=== PATIENT | female | born 1955 | race Caucasian/White ===

== ENCOUNTER 2017-01-02 07:19 | Emergency (ER) | payer MEDICAID ==
[~2017-01-02] VITALS: Ht 162.6 cm; Wt 60.0 kg
[~2017-01-02 07:19] MED LIST: ACET-2178 PO; Folic Acid PO; LEVO750T21 PO; METR250T PO; Multivitamins,Ther W-Minerals PO; ONDA4TAB5 PO; PANT40TA4 PO; Thiamine Hcl PO
[2017-01-02 08:08] LABS: BASOPHILS % 0.9 % (0.0-2.0); DIFFERENTIAL COMMENT 0; EOSINOPHILS % 3.3 % (0.0-5.0); HEMATOCRIT. 28.1 % (36.0-48.0); LYMPHOCYTES % 19.6 % (20.0-50.0); MEAN CORPUSCULAR HEMOGLOBIN 24.7 pg (28.0-32.0); MEAN CORPUSCULAR HGB CONC 32.2 g/dL (31.0-37.0); MEAN CORPUSCULAR VOLUME 76.7 fL (81.0-99.0); MEAN PLATELET VOLUME 7.6 fl (7.4-10.4); MONOCYTES % 13.4 % (2.0-8.0); NEUTROPHILS % 62.8 % (40.0-76.0); PLATELET 104 x1000/uL (130-400); RED BLOOD CELL COUNT 3.66 mill/uL (4.2-5.4); RED CELL DISTRIBUTION WIDTH 18.4 % (11.6-14.6); WHITE BLOOD COUNT 2.9 x1000/uL (4.5-11.0)
[2017-01-02 08:12] LABS: CHLORIDE 103 mEq/L (98-107); INDEX HEMOLYSI 1 (1-3); INDEX ICTERIC 1 (1-4); INDEX LIPEMIC 1 (1-3)
[2017-01-02 08:17] LABS: ACETAMINOPHEN < 2 ug/mL (10-30); ANION GAP 14; CARBON DIOXIDE 28 mEq/L (21-32); ETHANOL BLOOD 231 mg/dL; UREA NITROGEN BLOOD 11 mg/dL (7-21); eGFR > 60 mL/min (>60)
[2017-01-02 09:21] LABS: ALANINE AMINOTRANSFERASE 28 IU/L (13-61); ALBUMIN 3.6 g/dL (3.4-5.0)
[2017-01-02 09:22] LABS: CLARITY URINE CLEAR (CLEAR); COLOR URINE YELLOW (YELLOW); GLUCOSE URINE NEGATIVE (NEGATIVE); KETONES URINE NEGATIVE (NEGATIVE); LEUKOCYTE ESTERASE URINE 2+ (NEGATIVE); NITRITE URINE NEGATIVE (NEGATIVE); OCCULT BLOOD URINE NEGATIVE (NEGATIVE); PH URINE 5.5 (4.5-8.0); PROTEIN URINE NEGATIVE (NEGATIVE); SPECIFIC GRAVITY URINE 1.008 (1.005-1.030); UROBILINOGEN URINE 0.2 E.U./dL (0.2-1.0)
[2017-01-02 09:37] LABS: *AMPHETAMINES SCREEN URINE NEGATIVE (NEGATIVE); *BARBITURATES SCREEN URINE NEGATIVE (NEGATIVE); *BENZODIAZEPINES SCREEN URINE NEGATIVE (NEGATIVE); *COCAINE SCREEN URINE NEGATIVE (NEGATIVE); CANNABINOID URINE SCREEN NEGATIVE (NEGATIVE); ECSTASY MDMA SCREEN URINE NEGATIVE (NEGATIVE); METHADONE URINE SCREEN NEGATIVE (NEGATIVE); OPIATES URINE SCREEN NEGATIVE (NEGATIVE); PHENCYCLIDINE URINE SCREEN NEGATIVE (NEGATIVE)
[2017-01-02 09:47] LABS: SQUAMOUS EPITHELIAL CELL URINE FEW /lpf (RARE/1+)
[2017-01-02 09:48] LABS: BACTERIA URINE 3+; WBC URINE 15-25 /hpf (0-2)
[2017-01-02 09:49] LABS: RBC URINE 0-2 /hpf (0-2)
[2017-01-02 10:08] VITALS: BP 126/82
== END 2017-01-02 10:15 | disposition left against medical advice (07) ==
LOC: ER 07:49
DX: K70.30 Alcoholic cirrhosis of liver without ascites (principal); F10.10 Alcohol abuse, uncomplicated; D64.9 Anemia, unspecified; F32.9 Major depressive disorder, single episode, unspecified; F31.9 Bipolar disorder, unspecified; I10 Essential (primary) hypertension; R45.851 Suicidal ideations; Y90.7 Blood alcohol level of 200-239 mg/100 ml
CPT/HCPCS: 36415; 80053; 80305; 80307; 80329; 81001; 85025; 99284; G0482

== ENCOUNTER 2017-01-08 08:34 | Emergency (ER) | payer MEDICAID ==
[~2017-01-08] VITALS: Ht 160 cm; Wt 66.0 kg
[2017-01-08] MEDS ORDERED: KETOROLAC 30MG/ML VIAL IV STA (09:24)
[2017-01-08] MEDS ORDERED: SODIUM CHLORIDE 0.9% 1,000 ML IV ONE (09:24)
[2017-01-08] MEDS ORDERED: ONDANSETRON HCL 4MG/2ML VIAL IV STA (09:24)
[2017-01-08 10:15] LABS: CLARITY URINE CLEAR (CLEAR); COLOR URINE YELLOW (YELLOW); GLUCOSE URINE NEGATIVE (NEGATIVE); KETONES URINE NEGATIVE (NEGATIVE); LEUKOCYTE ESTERASE URINE NEGATIVE (NEGATIVE); NITRITE URINE NEGATIVE (NEGATIVE); OCCULT BLOOD URINE NEGATIVE (NEGATIVE); PH URINE 7.5 (4.5-8.0); PROTEIN URINE NEGATIVE (NEGATIVE); SPECIFIC GRAVITY URINE 1.005 (1.005-1.030); UROBILINOGEN URINE 0.2 E.U./dL (0.2-1.0)
[2017-01-08 10:30] LABS: *AMPHETAMINES SCREEN URINE NEGATIVE (NEGATIVE); *BARBITURATES SCREEN URINE NEGATIVE (NEGATIVE); *BENZODIAZEPINES SCREEN URINE NEGATIVE (NEGATIVE); *COCAINE SCREEN URINE NEGATIVE (NEGATIVE); CANNABINOID URINE SCREEN NEGATIVE (NEGATIVE); ECSTASY MDMA SCREEN URINE NEGATIVE (NEGATIVE); METHADONE URINE SCREEN NEGATIVE (NEGATIVE); OPIATES URINE SCREEN NEGATIVE (NEGATIVE); PHENCYCLIDINE URINE SCREEN NEGATIVE (NEGATIVE)
[2017-01-08 10:35] LABS: HEMATOCRIT. 26.8 % (36.0-48.0); HEMOGLOBIN. 8.6 g/dL (12.0-16.0); MEAN CORPUSCULAR HEMOGLOBIN 25.2 pg (28.0-32.0); MEAN CORPUSCULAR VOLUME 78.7 fL (81.0-99.0); MEAN PLATELET VOLUME 7.8 fl (7.4-10.4); PLATELET 120 x1000/uL (130-400); RED BLOOD CELL COUNT 3.41 mill/uL (4.2-5.4); RED CELL DISTRIBUTION WIDTH 19.6 % (11.6-14.6); WHITE BLOOD COUNT 2.6 x1000/uL (4.5-11.0)
[2017-01-08 10:39] LABS: DIFFERENTIAL COMMENT 1
[2017-01-08 10:41] LABS: INR 1.2; PROTHROMBIN TIME 12.4 sec
[2017-01-08 10:46] LABS: ALANINE AMINOTRANSFERASE 28 IU/L (13-61); ALBUMIN 3.7 g/dL (3.4-5.0); ANION GAP 15; CALCIUM 9.2 mg/dL (8.5-10.1); CARBON DIOXIDE 27 mEq/L (21-32); CHLORIDE 103 mEq/L (98-107); INDEX HEMOLYSI 1 (1-3); INDEX ICTERIC 1 (1-4); INDEX LIPEMIC 1 (1-3); LIPASE 343 IU/L (73-393); UREA NITROGEN BLOOD 12 mg/dL (7-21); eGFR > 60 mL/min (>60)
[2017-01-08 11:17] LABS: ANISOCYTOSIS 1+; PLATELET ESTIMATE DECREASED
[2017-01-08 11:18] LABS: GIANT PLATELETS FEW
[2017-01-08 11:19] VITALS: BP 141/71
== END 2017-01-08 12:42 | disposition home or self-care (01) ==
LOC: ER 08:36
DX: R10.11 Right upper quadrant pain (principal); R11.2 Nausea with vomiting, unspecified; K85.90 Acute pancreatitis without necrosis or infection, unspecified; K70.30 Alcoholic cirrhosis of liver without ascites; I10 Essential (primary) hypertension; K80.20 Calculus of gallbladder without cholecystitis without obstruction; M19.90 Unspecified osteoarthritis, unspecified site; F12.10 Cannabis abuse, uncomplicated; F31.9 Bipolar disorder, unspecified; K76.9 Liver disease, unspecified
CPT/HCPCS: 36415; 76705; 80053; 80305; 81003; 81025; 83690; 85025; 85610; 96361; 96374; 96375; 99285; J1885; J2405; J7030; Z7610

== ENCOUNTER 2017-03-14 14:49 | Emergency (ER) | payer MEDICAID ==
[~2017-03-14] VITALS: Ht 157.5 cm; Wt 70.0 kg
[2017-03-14 16:07] VITALS: BP 127/76
[2017-05-29] MEDS ORDERED: FERR325T23 PO (13:43)
[2017-05-29] MEDS ORDERED: Multivitamins,Ther W-Minerals PO (13:43)
[2017-05-29] MEDS ORDERED: NITR-87 PO (13:43)
[2017-05-29] MEDS ORDERED: FOLI-43 PO (13:43)
[2017-05-29] MEDS ORDERED: THIA100T72 PO (13:43)
== END 2017-03-14 21:30 | disposition home or self-care (01) ==
LOC: ER 14:49
DX: L29.9 Pruritus, unspecified (principal); R21 Rash and other nonspecific skin eruption; I10 Essential (primary) hypertension; F41.9 Anxiety disorder, unspecified; F31.9 Bipolar disorder, unspecified; F12.10 Cannabis abuse, uncomplicated
CPT/HCPCS: 99283

== ENCOUNTER 2017-03-19 18:33 | Emergency (ER) | payer MEDICAID ==
[~2017-03-19] VITALS: Ht 162.6 cm; Wt 77.0 kg
[2017-03-19] MEDS ORDERED: SODIUM CHLORIDE 0.9% 1,000 ML IV ONE (21:00)
[2017-03-19] MEDS ORDERED: ACTIVATED CHARCOAL 50 G/240 ML TUBE PO NR (21:00)
[2017-03-19 21:14] LABS: BASOPHILS % 1.6 % (0.0-2.0); EOSINOPHILS % 1.2 % (0.0-5.0); HEMATOCRIT. 22.9 % (36.0-48.0); HEMOGLOBIN. 7.2 g/dL (12.0-16.0); LYMPHOCYTES % 25.8 % (20.0-50.0); MEAN CORPUSCULAR HEMOGLOBIN 21.9 pg (28.0-32.0); MEAN CORPUSCULAR VOLUME 70.2 fL (81.0-99.0); MEAN PLATELET VOLUME 8.7 fl (7.4-10.4); MONOCYTES % 10.4 % (2.0-8.0); PLATELET 99 x1000/uL (130-400); RED BLOOD CELL COUNT 3.26 mill/uL (4.2-5.4); RED CELL DISTRIBUTION WIDTH 25.8 % (11.6-14.6)
[2017-03-19 21:27] LABS: CARBON DIOXIDE 26 mEq/L (21-32); CHLORIDE 114 mEq/L (98-107)
[2017-03-19 21:29] LABS: ETHANOL BLOOD 294 mg/dL
[2017-03-19 21:42] LABS: *AMPHETAMINES SCREEN URINE NEGATIVE (NEGATIVE); *BARBITURATES SCREEN URINE NEGATIVE (NEGATIVE); *BENZODIAZEPINES SCREEN URINE NEGATIVE (NEGATIVE); CANNABINOID URINE SCREEN NEGATIVE (NEGATIVE); METHADONE URINE SCREEN NEGATIVE (NEGATIVE); OPIATES URINE SCREEN NEGATIVE (NEGATIVE); PHENCYCLIDINE URINE SCREEN NEGATIVE (NEGATIVE)
[2017-03-19 21:44] LABS: PLATELET ESTIMATE DECREASED
[2017-03-19 22:32] LABS: *COCAINE SCREEN URINE NEGATIVE (NEGATIVE)
[2017-03-20 01:23] LABS: TOTAL IRON BINDING CAPACITY 480 ug/dL (250-450)
[2017-03-20 13:07] VITALS: BP 138/72
[2017-05-29] MEDS ORDERED: FERR325T23 PO (13:43)
[2017-05-29] MEDS ORDERED: THIA100T72 PO (13:43)
[2017-05-29] MEDS ORDERED: NITR-87 PO (13:43)
[2017-05-29] MEDS ORDERED: Multivitamins,Ther W-Minerals PO (13:43)
[2017-05-29] MEDS ORDERED: FOLI-43 PO (13:43)
== END 2017-03-20 13:08 | disposition home or self-care (01) ==
LOC: ER 19:18
DX: T43.022A Poisoning by tetracyclic antidepressants, intentional self-harm, initial encounter (principal); F10.129 Alcohol abuse with intoxication, unspecified; Y90.8 Blood alcohol level of 240 mg/100 ml or more; F32.9 Major depressive disorder, single episode, unspecified; I10 Essential (primary) hypertension; F31.9 Bipolar disorder, unspecified; M19.90 Unspecified osteoarthritis, unspecified site; F12.10 Cannabis abuse, uncomplicated; F15.10 Other stimulant abuse, uncomplicated; K76.9 Liver disease, unspecified; R45.851 Suicidal ideations; Y92.59 Other trade areas as the place of occurrence of the external cause
CPT/HCPCS: 36415; 80048; 80305; 80307; 80329; 83540; 83550; 85025; 96360; 99284; G0482; J7030

== ENCOUNTER 2017-05-24 17:29 | Inpatient (IN) | payer MEDICAID ==
[~2017-05-24] VITALS: Ht 167.6 cm; Wt 67.3 kg
[2017-05-24 19:56] LABS: BASOPHILS % 1.3 % (0.0-2.0); EOSINOPHILS % 3.1 % (0.0-5.0); HEMATOCRIT. 30.6 % (36.0-48.0); HEMOGLOBIN. 9.6 g/dL (12.0-16.0); MEAN CORPUSCULAR HEMOGLOBIN 22.6 pg (28.0-32.0); MEAN CORPUSCULAR VOLUME 72.1 fL (81.0-99.0); MEAN PLATELET VOLUME 8.6 fl (7.4-10.4); MONOCYTES % 9.6 % (2.0-8.0); PLATELET 153 x1000/uL (130-400); RED BLOOD CELL COUNT 4.25 mill/uL (4.2-5.4); RED CELL DISTRIBUTION WIDTH 31.8 % (11.6-14.6)
[2017-05-24 19:57] LABS: INR 1.2; PROTHROMBIN TIME 12.8 sec (9.4-11.6)
[2017-05-24 20:00] LABS: AMMONIA 11 uMol/L (<32)
[2017-05-24 20:02] LABS: CARBON DIOXIDE 24 mEq/L (21-32); CHLORIDE 109 mEq/L (98-107); ETHANOL BLOOD 186 mg/dL
[2017-05-24 20:07] LABS: CREATINE KINASE 132 IU/L (26-192)
[2017-05-24 20:11] LABS: PLATELET ESTIMATE NORMAL
[2017-05-24 22:50] LABS: CLARITY URINE CLOUDY (CLEAR); COLOR URINE YELLOW (YELLOW); GLUCOSE URINE NEGATIVE (NEGATIVE); KETONES URINE NEGATIVE (NEGATIVE); LEUKOCYTE ESTERASE URINE 2+ (NEGATIVE); NITRITE URINE POSITIVE (NEGATIVE); OCCULT BLOOD URINE NEGATIVE (NEGATIVE); PH URINE 6.5 (4.5-8.0); PROTEIN URINE NEGATIVE (NEGATIVE); SPECIFIC GRAVITY URINE 1.011 (1.005-1.030); UROBILINOGEN URINE 0.2 E.U./dL (0.2-1.0)
[2017-05-24 22:59] LABS: *AMPHETAMINES SCREEN URINE PRESUMTIVE POSITIVE (NEGATIVE); *BARBITURATES SCREEN URINE NEGATIVE (NEGATIVE); *BENZODIAZEPINES SCREEN URINE NEGATIVE (NEGATIVE); *COCAINE SCREEN URINE PRESUMTIVE POSITIVE (NEGATIVE); CANNABINOID URINE SCREEN NEGATIVE (NEGATIVE); METHADONE URINE SCREEN NEGATIVE (NEGATIVE); OPIATES URINE SCREEN NEGATIVE (NEGATIVE); PHENCYCLIDINE URINE SCREEN NEGATIVE (NEGATIVE)
[2017-05-25] VITALS (7 sets, daily range): BP systolic 130–161; BP diastolic 78–81
[2017-05-25] MEDS ORDERED: SODIUM CHLORIDE 0.9% 1,000 ML IV ONE (00:15)
[2017-05-25] MEDS ORDERED: POTASSIUM CHLORIDE 20MEQ TABLET SR PO NR (06:30)
[2017-05-25] MEDS: MULTIVITAMINS,THER W-MINERALS TABLET PO SCH (08:09)
[2017-05-25] MEDS: CHLORDIAZEPOXIDE 25MG CAPSULE PO SCH ×3 (08:09→21:47)
[2017-05-25] MEDS: FOLIC ACID 1MG TABLET PO SCH (08:09)
[2017-05-25] MEDS: THIAMINE HCL 100MG TABLET PO SCH (08:09)
[2017-05-25] MEDS ORDERED: FOLIC ACID 1 MG, THIAMINE HCL 100 MG, MVI, ADULT NO.1 10 ML in DEXTROSE 5% WATER 1,000 ML IV ONE ×4 (09:00)
[2017-05-25 09:39] LABS: BASOPHILS % 0.9 % (0.0-2.0); EOSINOPHILS % 2.5 % (0.0-5.0); HEMATOCRIT. 30.1 % (36.0-48.0); HEMOGLOBIN. 9.7 g/dL (12.0-16.0); LYMPHOCYTES % 18.5 % (20.0-50.0); MEAN CORPUSCULAR HEMOGLOBIN 23.1 pg (28.0-32.0); MEAN CORPUSCULAR VOLUME 71.7 fL (81.0-99.0); MEAN PLATELET VOLUME 8.6 fl (7.4-10.4); MONOCYTES % 14.1 % (2.0-8.0); PLATELET 119 x1000/uL (130-400); RED CELL DISTRIBUTION WIDTH 31.4 % (11.6-14.6)
[2017-05-25 09:50] LABS: CARBON DIOXIDE 24 mEq/L (21-32); CHLORIDE 104 mEq/L (98-107); HDL CHOLESTEROL 55 mg/dL (40-59); LDL CHOLESTEROL 91 mg/dL (5-100)
[2017-05-25] MEDS ORDERED: LORAZEPAM 2MG/ML CPJ IV PRN (11:15)
[2017-05-25 12:38] LABS: HEPATITIS B SURFACE ANTIGEN NEGATIVE
[2017-05-25] MEDS ORDERED: POTASSIUM CHLORIDE 20MEQ/PACKET PO NR (12:45)
[2017-05-25 13:06] LABS: HEPATITIS B CORE AB IGM NEGATIVE
[2017-05-25 13:08] LABS: HEPATITIS A AB IGM NEGATIVE (NEGATIVE)
[2017-05-25] MEDS: ACETAMINOPHEN 325MG TABLET PO PRN (13:35)
[2017-05-25] MEDS ORDERED: MAGNESIUM 2 G PREMIX 50 ML IV NR (14:00)
[2017-05-25 15:16] LABS: CREATINE KINASE 78 IU/L (26-192); TROPONIN I < 0.02 ng/mL (0.00-0.04)
[2017-05-25] MEDS ORDERED: CEFTRIAXONE 2 G PREMIX 50 ML IV SCH (16:30)
[2017-05-25] MEDS: CEFTRIAXONE 2 G in DEXTROSE 5% WATER 50 ML IV SCH (16:43)
[2017-05-25 23:19] LABS: CREATINE KINASE 73 IU/L (26-192); CREATINE KINASE MB FRACTION 1.3 ng/mL (0.5-3.6); TROPONIN I < 0.02 ng/mL (0.00-0.04)
[2017-05-26] VITALS (8 sets, daily range): BP systolic 118–147; BP diastolic 54–87
[2017-05-26 06:27] LABS: HEMATOCRIT. 28.8 % (36.0-48.0); HEMOGLOBIN. 9.2 g/dL (12.0-16.0); MEAN CORPUSCULAR HEMOGLOBIN 23.3 pg (28.0-32.0); MEAN CORPUSCULAR VOLUME 72.6 fL (81.0-99.0); MEAN PLATELET VOLUME 8.7 fl (7.4-10.4); PLATELET 88 x1000/uL (130-400); RED BLOOD CELL COUNT 3.96 mill/uL (4.2-5.4); RED CELL DISTRIBUTION WIDTH 31.8 % (11.6-14.6)
[2017-05-26] MEDS: CHLORDIAZEPOXIDE 25MG CAPSULE PO SCH ×3 (06:27→21:59)
[2017-05-26 07:50] LABS: CARBON DIOXIDE 27 mEq/L (21-32); CHLORIDE 104 mEq/L (98-107)
[2017-05-26] MEDS: MULTIVITAMINS,THER W-MINERALS TABLET PO SCH (08:20)
[2017-05-26] MEDS: FOLIC ACID 1MG TABLET PO SCH (08:20)
[2017-05-26] MEDS: THIAMINE HCL 100MG TABLET PO SCH (08:20)
[2017-05-26 09:47] LABS: PLATELET ESTIMATE DECREASED
[2017-05-26] MEDS ORDERED: POTASSIUM CHLORIDE 20MEQ TABLET SR PO NR (10:30)
[2017-05-26] MEDS: CEFTRIAXONE 2 G in DEXTROSE 5% WATER 50 ML IV SCH (16:02)
[2017-05-26] MEDS: ACETAMINOPHEN 325MG TABLET PO PRN (21:59)
[2017-05-27] VITALS: BP 123/59
[2017-05-27 04:00] VITALS: BP 127/67
[2017-05-27] MEDS: CHLORDIAZEPOXIDE 25MG CAPSULE PO SCH ×3 (07:29→21:29)
[2017-05-27 08:00] VITALS: BP 141/83
[2017-05-27] MEDS: MULTIVITAMINS,THER W-MINERALS TABLET PO SCH (10:11)
[2017-05-27] MEDS: THIAMINE HCL 100MG TABLET PO SCH (10:11)
[2017-05-27] MEDS: FOLIC ACID 1MG TABLET PO SCH (10:11)
[2017-05-27 11:42] LABS: HEMATOCRIT. 28.4 % (36.0-48.0); MEAN CORPUSCULAR HEMOGLOBIN 22.9 pg (28.0-32.0); MEAN CORPUSCULAR VOLUME 72.7 fL (81.0-99.0); RED BLOOD CELL COUNT 3.91 mill/uL (4.2-5.4); RED CELL DISTRIBUTION WIDTH 31.3 % (11.6-14.6)
[2017-05-27 12:00] VITALS: BP_SYST 119; BP_SYST 127; BP_SYST 139; BP_DIAS 63; BP_DIAS 73; BP_DIAS 82
[2017-05-27 12:08] LABS: ATYPICAL LYMPHOCYTES 1
[2017-05-27 12:12] LABS: PLATELET ESTIMATE DECREASED
[2017-05-27 12:13] LABS: CARBON DIOXIDE 25 mEq/L (21-32); CHLORIDE 107 mEq/L (98-107); PLATELET 93 x1000/uL (130-400)
[2017-05-27] MEDS ORDERED: POTASSIUM CHLORIDE 20MEQ TABLET SR PO NR (15:45)
[2017-05-27 16:00] VITALS: BP 125/68
[2017-05-27] MEDS: CEFTRIAXONE 2 G in DEXTROSE 5% WATER 50 ML IV SCH (16:21)
[2017-05-27 19:47] LABS: TOTAL IRON BINDING CAPACITY 348 ug/dL (250-450)
[2017-05-27 20:00] VITALS: BP_SYST 136; BP_SYST 137; BP_DIAS 77; BP_DIAS 85
[2017-05-27] MEDS ORDERED: FILGRASTIM 300 MCG/ML VIAL SUBCUT NR (21:00)
[2017-05-28] VITALS: BP 137/81
[2017-05-28 04:00] VITALS: BP 129/72
[2017-05-28 06:35] LABS: BASOPHILS % 0.3 % (0.0-2.0); EOSINOPHILS % 1.6 % (0.0-5.0); HEMATOCRIT. 29.6 % (36.0-48.0); HEMOGLOBIN. 9.4 g/dL (12.0-16.0); LYMPHOCYTES % 7.9 % (20.0-50.0); MEAN CORPUSCULAR HEMOGLOBIN 23.2 pg (28.0-32.0); MEAN CORPUSCULAR VOLUME 73.1 fL (81.0-99.0); MEAN PLATELET VOLUME 8.6 fl (7.4-10.4); MONOCYTES % 11.2 % (2.0-8.0); PLATELET 87 x1000/uL (130-400); RED BLOOD CELL COUNT 4.05 mill/uL (4.2-5.4); RED CELL DISTRIBUTION WIDTH 31.4 % (11.6-14.6)
[2017-05-28] MEDS: CHLORDIAZEPOXIDE 25MG CAPSULE PO SCH ×3 (07:03→21:32)
[2017-05-28] MEDS: FERROUS SULFATE 325MG TABLET PO SCH ×3 (07:03→17:17)
[2017-05-28 07:41] LABS: CARBON DIOXIDE 22 mEq/L (21-32); CHLORIDE 106 mEq/L (98-107)
[2017-05-28 08:00] VITALS: BP_SYST 119; BP_SYST 132; BP_SYST 135; BP_DIAS 75; BP_DIAS 78; BP_DIAS 83
[2017-05-28] MEDS: THIAMINE HCL 100MG TABLET PO SCH (08:24)
[2017-05-28] MEDS: MULTIVITAMINS,THER W-MINERALS TABLET PO SCH (08:24)
[2017-05-28] MEDS: FOLIC ACID 1MG TABLET PO SCH (08:24)
[2017-05-28 12:00] VITALS: BP 119/65
[2017-05-28] MEDS ORDERED: ONDANSETRON HCL 4MG/2ML VIAL IV PRN (13:30)
[2017-05-28 16:00] VITALS: BP 122/65
[2017-05-28] MEDS: CEFTRIAXONE 2 G in DEXTROSE 5% WATER 50 ML IV SCH (17:17)
[2017-05-28] MEDS: ACETAMINOPHEN 325MG TABLET PO PRN (21:38)
[2017-05-28 21:42] VITALS: BP 129/65
[2017-05-29] VITALS: BP 118/66
[2017-05-29 04:00] VITALS: BP 123/75
[2017-05-29] MEDS: CHLORDIAZEPOXIDE 25MG CAPSULE PO SCH ×3 (06:44→21:01)
[2017-05-29] MEDS: FERROUS SULFATE 325MG TABLET PO SCH ×3 (06:45→16:44)
[2017-05-29 06:48] LABS: BASOPHILS % 0.7 % (0.0-2.0); EOSINOPHILS % 2.1 % (0.0-5.0); HEMATOCRIT. 31.2 % (36.0-48.0); LYMPHOCYTES % 10.7 % (20.0-50.0); MEAN CORPUSCULAR HEMOGLOBIN 23.6 pg (28.0-32.0); MEAN CORPUSCULAR VOLUME 73.5 fL (81.0-99.0); MEAN PLATELET VOLUME 8.7 fl (7.4-10.4); MONOCYTES % 7.8 % (2.0-8.0); NEUTROPHILS % 78.7 % (40.0-76.0); PLATELET 119 x1000/uL (130-400); RED BLOOD CELL COUNT 4.24 mill/uL (4.2-5.4); RED CELL DISTRIBUTION WIDTH 32.2 % (11.6-14.6)
[2017-05-29 06:53] LABS: CARBON DIOXIDE 25 mEq/L (21-32); CHLORIDE 107 mEq/L (98-107)
[2017-05-29 08:00] VITALS: BP 123/73
[2017-05-29] MEDS: FOLIC ACID 1MG TABLET PO SCH (08:34)
[2017-05-29] MEDS: MULTIVITAMINS,THER W-MINERALS TABLET PO SCH (08:34)
[2017-05-29] MEDS: THIAMINE HCL 100MG TABLET PO SCH (08:34)
[2017-05-29 12:00] VITALS: BP 117/65
[2017-05-29] MEDS ORDERED: THIA100T72 PO (13:43)
[2017-05-29] MEDS ORDERED: NITR-87 PO (13:43)
[2017-05-29] MEDS ORDERED: Multivitamins,Ther W-Minerals PO (13:43)
[2017-05-29] MEDS ORDERED: FOLI-43 PO (13:43)
[2017-05-29] MEDS ORDERED: FERR325T23 PO (13:43)
[2017-05-29 16:14] VITALS: BP 96/55
[2017-05-29] MEDS: CEFTRIAXONE 2 G in DEXTROSE 5% WATER 50 ML IV SCH (16:30)
[2017-05-29 20:00] VITALS: BP 110/58
[2017-05-30 00:09] VITALS: BP 142/77
[2017-05-30 04:00] VITALS: BP 126/77
[2017-05-30] MEDS: CHLORDIAZEPOXIDE 25MG CAPSULE PO SCH (05:22)
[2017-05-30 08:00] VITALS: BP_SYST 126; BP_SYST 134; BP_DIAS 75; BP_DIAS 77
[2017-05-30] MEDS: MULTIVITAMINS,THER W-MINERALS TABLET PO SCH (08:56)
[2017-05-30] MEDS: FERROUS SULFATE 325MG TABLET PO SCH (08:56)
[2017-05-30] MEDS: THIAMINE HCL 100MG TABLET PO SCH (08:56)
[2017-05-30] MEDS: FOLIC ACID 1MG TABLET PO SCH (09:00)
[2017-05-30 12:00] VITALS: BP 131/72
[2017-05-30 12:41] VITALS: BP 131/72
== END 2017-05-30 13:00 | disposition home or self-care (01) | DRG 775 ==
LOC: ER 17:29 → 5WST 23:16 → ENRESERV 05-25 00:02
PROVIDERS: ADMIT Internal Medicine; ATTEND Internal Medicine
DX: F10.229 Alcohol dependence with intoxication, unspecified (principal); D61.818 Other pancytopenia; R65.10 Systemic inflammatory response syndrome (SIRS) of non-infectious origin without acute organ dysfunction; E83.42 Hypomagnesemia; G45.9 Transient cerebral ischemic attack, unspecified; F31.9 Bipolar disorder, unspecified; K70.30 Alcoholic cirrhosis of liver without ascites; I10 Essential (primary) hypertension; D50.9 Iron deficiency anemia, unspecified; F17.210 Nicotine dependence, cigarettes, uncomplicated; N39.0 Urinary tract infection, site not specified; Z59.0 Homelessness; E87.6 Hypokalemia; D63.8 Anemia in other chronic diseases classified elsewhere; F19.10 Other psychoactive substance abuse, uncomplicated; Y90.6 Blood alcohol level of 120-199 mg/100 ml; F41.9 Anxiety disorder, unspecified; Z79.899 Other long term (current) drug therapy
CPT/HCPCS: 36415; 70450; 70551; 71010; 80048; 80053; 80061; 80305; 81001; 82140; 82550; 82553; 82728; 83540; 83550; 83605; 83735; 83880; 84443; 84484; 85025; 85044; 85610; 85730; 86705; 86709; 86803; 86850; 86900; 87077; 87086; 87186; 87340; 93005; 93970; 97162; 99285; C1893; G0482; J0696; J1442; J2405; J3411; J3475; J3490; J7030; J7050; J7060; J7070

== ENCOUNTER 2017-06-23 18:21 | Inpatient (IN) | payer MEDICAID ==
[~2017-06-23] VITALS: Ht 160 cm; Wt 65.8 kg
[~2017-06-23 18:21] MED LIST changes: -ACET-2178 PO; +FERR325T23 PO; +FOLI-43 PO; -Folic Acid PO; -LEVO750T21 PO; -METR250T PO; +NITR-87 PO; -ONDA4TAB5 PO; -PANT40TA4 PO; +THIA100T72 PO; -Thiamine Hcl PO
[2017-06-23] MEDS ORDERED: SODIUM CHLORIDE 0.9% 1,000 ML IV ONE ×2 (18:30→20:00)
[2017-06-23] MEDS ORDERED: ONDANSETRON HCL 4MG/2ML VIAL IV STA (18:30)
[2017-06-23] MEDS ORDERED: PANTOPRAZOLE SODIUM 40 MG/VIAL IV STA (18:30)
[2017-06-23 19:10] LABS: BASOPHILS % 1.7 % (0.0-2.0); EOSINOPHILS % 1.9 % (0.0-5.0); HEMOGLOBIN. 11.4 g/dL (12.0-16.0); LYMPHOCYTES % 20.5 % (20.0-50.0); MEAN CORPUSCULAR HEMOGLOBIN 26.2 pg (28.0-32.0); MEAN CORPUSCULAR VOLUME 80.5 fL (81.0-99.0); MEAN PLATELET VOLUME 8.3 fl (7.4-10.4); MONOCYTES % 13.7 % (2.0-8.0); NEUTROPHILS % 62.2 % (40.0-76.0); PLATELET 176 x1000/uL (130-400); RED BLOOD CELL COUNT 4.35 mill/uL (4.2-5.4); RED CELL DISTRIBUTION WIDTH 29.1 % (11.6-14.6)
[2017-06-23 19:18] LABS: INR 1.2; PROTHROMBIN TIME 12.7 sec (9.4-11.6)
[2017-06-23 19:23] LABS: CARBON DIOXIDE 25 mEq/L (21-32); CHLORIDE 111 mEq/L (98-107); ETHANOL BLOOD 289 mg/dL
[2017-06-23 19:26] LABS: TROPONIN I < 0.02 ng/mL (0.00-0.04)
[2017-06-23] MEDS ORDERED: METOCLOPRAMIDE HCL 10MG/2ML VIAL IV STA (21:20)
[2017-06-23] MEDS ORDERED: FAMOTIDINE 20MG/2ML VIAL IV STA (21:20)
[2017-06-23] MEDS ORDERED: MAGNESIUM/ALUMINUM HYDROXIDE/SIMETHICONE 30ML UDC PO STA (21:20)
[2017-06-23 21:26] LABS: CLARITY URINE CLEAR (CLEAR); COLOR URINE YELLOW (YELLOW); GLUCOSE URINE NEGATIVE (NEGATIVE); KETONES URINE NEGATIVE (NEGATIVE); LEUKOCYTE ESTERASE URINE NEGATIVE (NEGATIVE); NITRITE URINE NEGATIVE (NEGATIVE); OCCULT BLOOD URINE NEGATIVE (NEGATIVE); PROTEIN URINE NEGATIVE (NEGATIVE); SPECIFIC GRAVITY URINE 1.017 (1.005-1.030); UROBILINOGEN URINE 0.2 E.U./dL (0.2-1.0)
[2017-06-23] MEDS ORDERED: DIPHENHYDRAMINE 50MG/ML VIAL IV ONE (21:30)
[2017-06-23 21:37] LABS: *AMPHETAMINES SCREEN URINE NEGATIVE (NEGATIVE); *BARBITURATES SCREEN URINE NEGATIVE (NEGATIVE); *BENZODIAZEPINES SCREEN URINE PRESUMTIVE POSITIVE (NEGATIVE); *COCAINE SCREEN URINE NEGATIVE (NEGATIVE); CANNABINOID URINE SCREEN NEGATIVE (NEGATIVE); METHADONE URINE SCREEN NEGATIVE (NEGATIVE); OPIATES URINE SCREEN NEGATIVE (NEGATIVE); PHENCYCLIDINE URINE SCREEN NEGATIVE (NEGATIVE)
[2017-06-23] MEDS ORDERED: IOHEXOL-300 100 ML BOTTLE ONE (22:39)
[2017-06-24] MEDS ORDERED: SODIUM CHLORIDE 0.9% 1,000 ML IV ONE (00:45)
[2017-06-24] MEDS ORDERED: SODIUM CHLORIDE 0.9% 1,000 ML IV SCH (02:26)
[2017-06-24 08:40] VITALS: BP 142/72
[2017-06-24] MEDS ORDERED: DIPHENHYDRAMINE 50MG/ML VIAL IV PRN (09:45)
[2017-06-24] MEDS ORDERED: CLONIDINE 0.1MG TABLET PO PRN (09:45)
[2017-06-24] MEDS ORDERED: MAGNESIUM/ALUMINUM HYDROXIDE/SIMETHICONE 30ML UDC PO PRN (09:45)
[2017-06-24] MEDS ORDERED: ONDANSETRON HCL 4MG/2ML VIAL IV PRN (10:00)
[2017-06-24] MEDS: DEXT 5%/0.45% NACL 1000ML 1,000 ML IV SCH ×2 (11:23→19:53)
[2017-06-24 12:00] VITALS: BP 144/67
[2017-06-24 16:00] VITALS: BP 138/68
[2017-06-24] MEDS: HYDROCORTISONE ACETATE 25MG SUPP PR SCH ×2 (16:45→20:51)
[2017-06-24 20:00] VITALS: BP 131/63
[2017-06-24] MEDS: ACETAMINOPHEN 325MG TABLET PO PRN (20:51)
[2017-06-25] VITALS (7 sets, daily range): BP systolic 123–149; BP diastolic 60–78
[2017-06-25] MEDS: DEXT 5%/0.45% NACL 1000ML 1,000 ML IV SCH ×2 (05:42→16:09)
[2017-06-25 07:56] LABS: CARBON DIOXIDE 24 mEq/L (21-32); CHLORIDE 107 mEq/L (98-107)
[2017-06-25] MEDS: ACETAMINOPHEN 325MG TABLET PO PRN ×2 (08:59→23:42)
[2017-06-25] MEDS: HYDROCORTISONE ACETATE 25MG SUPP PR SCH ×2 (08:59→20:50)
[2017-06-25] MEDS: PANTOPRAZOLE SODIUM 40 MG/VIAL IV SCH (09:00)
[2017-06-25 09:48] LABS: HEMATOCRIT. 31.9 % (36.0-48.0); HEMOGLOBIN. 10.6 g/dL (12.0-16.0); MEAN CORPUSCULAR HEMOGLOBIN 27.3 pg (28.0-32.0); MEAN CORPUSCULAR VOLUME 82.2 fL (81.0-99.0); MEAN PLATELET VOLUME 8.5 fl (7.4-10.4); PLATELET 85 x1000/uL (130-400); RED BLOOD CELL COUNT 3.88 mill/uL (4.2-5.4); RED CELL DISTRIBUTION WIDTH 26.1 % (11.6-14.6)
[2017-06-25] MEDS ORDERED: POTASSIUM CHLORIDE 20MEQ TABLET SR PO NR ×2 (15:15→18:00)
[2017-06-25 16:58] LABS: PLATELET ESTIMATE DECREASED
[2017-06-25] MEDS ORDERED: MAGNESIUM 1 G PREMIX 100 ML IV NR (17:00)
[2017-06-25] MEDS ORDERED: POTASSIUM CHLORIDE 20MEQ TABLET SR PO ONE (17:45)
[2017-06-26] MEDS: DEXT 5%/0.45% NACL 1000ML 1,000 ML IV SCH ×2 (00:47→12:53)
[2017-06-26 04:00] VITALS: BP 128/63
[2017-06-26 06:14] LABS: HEMATOCRIT. 30.7 % (36.0-48.0); MEAN CORPUSCULAR VOLUME 82.7 fL (81.0-99.0); MEAN PLATELET VOLUME 8.9 fl (7.4-10.4); PLATELET 84 x1000/uL (130-400); RED BLOOD CELL COUNT 3.71 mill/uL (4.2-5.4); RED CELL DISTRIBUTION WIDTH 25.3 % (11.6-14.6)
[2017-06-26 07:04] LABS: CARBON DIOXIDE 24 mEq/L (21-32); CHLORIDE 110 mEq/L (98-107)
[2017-06-26 08:00] VITALS: BP 129/82
[2017-06-26] MEDS: PANTOPRAZOLE SODIUM 40 MG/VIAL IV SCH (09:04)
[2017-06-26] MEDS: HYDROCORTISONE ACETATE 25MG SUPP PR SCH (09:04)
[2017-06-26 12:00] VITALS: BP 109/68
[2017-06-26 16:00] VITALS: BP 150/75
[2017-06-26 16:51] VITALS: BP 147/71
[2017-06-26 18:15] LABS: PLATELET ESTIMATE DECREASED
== END 2017-06-26 17:15 | disposition home or self-care (01) ==
LOC: ER 18:46 → 7WST 06-24 02:28 → CANRESERV 06-24 04:35 → ENRESERV 06-24 04:35 → CANBEDREQ 06-24 08:39
PROVIDERS: ADMIT Internal Medicine; ATTEND Internal Medicine
DX: K74.60 Unspecified cirrhosis of liver (principal); G92 Toxic encephalopathy; D69.6 Thrombocytopenia, unspecified; K80.20 Calculus of gallbladder without cholecystitis without obstruction; F31.9 Bipolar disorder, unspecified; G40.909 Epilepsy, unspecified, not intractable, without status epilepticus; E87.6 Hypokalemia; F10.20 Alcohol dependence, uncomplicated; F17.210 Nicotine dependence, cigarettes, uncomplicated; F41.1 Generalized anxiety disorder; I10 Essential (primary) hypertension; Z79.899 Other long term (current) drug therapy
CPT/HCPCS: 36415; 71010; 74177; 80048; 80053; 80305; 81003; 83605; 83690; 83735; 84484; 85025; 85610; 86850; 86900; 93005; 99285; C9113; G0482; J1200; J2405; J2765; J3475; J3490; J7030; Q9967

== ENCOUNTER 2017-08-30 19:54 | Emergency (ER) | payer MEDICAID ==
[~2017-08-30] VITALS: Ht 157.5 cm; Wt 64.0 kg
[2017-08-30] MEDS ORDERED: ONDANSETRON HCL 4MG/2ML VIAL IV STA (20:24)
[2017-08-30] MEDS ORDERED: SODIUM CHLORIDE 0.9% 1,000 ML IV ONE (20:24)
[2017-08-30 22:01] LABS: BASOPHILS % 0.4 % (0.0-2.0); EOSINOPHILS % 1.2 % (0.0-5.0); HEMATOCRIT. 34.5 % (36.0-48.0); HEMOGLOBIN. 11.7 g/dL (12.0-16.0); MEAN CORPUSCULAR HEMOGLOBIN 29.2 pg (28.0-32.0); MEAN CORPUSCULAR VOLUME 86.6 fL (81.0-99.0); MEAN PLATELET VOLUME 8.5 fl (7.4-10.4); MONOCYTES % 9.2 % (2.0-8.0); NEUTROPHILS % 62.2 % (40.0-76.0); PLATELET 90 x1000/uL (130-400); RED BLOOD CELL COUNT 3.99 mill/uL (4.2-5.4); RED CELL DISTRIBUTION WIDTH 18.9 % (11.6-14.6)
[2017-08-30 22:04] LABS: CHLORIDE 108 mEq/L (98-107)
[2017-08-30 22:06] LABS: INR 1.3; PARTIAL THROMBOPLASTIN TIME 30.1 sec (23.4-31.0); PROTHROMBIN TIME 13.2 sec (9.4-11.6)
[2017-08-30 22:07] LABS: CARBON DIOXIDE 27 mEq/L (21-32)
[2017-08-30 22:15] LABS: TROPONIN I < 0.02 ng/mL (0.00-0.04)
[2017-08-30 22:17] LABS: ETHANOL BLOOD 388 mg/dL
[2017-08-30] MEDS ORDERED: ONDANSETRON HCL 4MG/2ML VIAL IV ONE (22:45)
[2017-08-31 01:11] VITALS: BP 124/80
== END 2017-08-31 01:14 | disposition home or self-care (01) ==
LOC: ER 20:25 → CANBEDREQ 08-31 01:36
DX: S09.8XXA Other specified injuries of head, initial encounter (principal); M54.5 Low back pain; F10.229 Alcohol dependence with intoxication, unspecified; R79.1 Abnormal coagulation profile; W19.XXXA Unspecified fall, initial encounter; Y93.89 Activity, other specified; Y92.89 Other specified places as the place of occurrence of the external cause; Y99.8 Other external cause status; Y90.8 Blood alcohol level of 240 mg/100 ml or more
CPT/HCPCS: 36415; 70450; 71010; 72125; 72131; 74176; 80053; 83690; 83880; 84484; 85025; 85610; 85730; 93005; 96361; 96374; 96376; 99285; G0482; J2405; J7030; Z7610